=== PATIENT | female | born 1965 | race American Indian/Alaskan Native ===

== ENCOUNTER 2017-03-26 07:33 | Day surgery (SDC) | payer BC, MEDICARE ==
[2017-03-26] MEDS ORDERED: WATER FOR IRRIG STERILE IR ONE (07:46)
[2017-03-26] MEDS ORDERED: NACL 0.9% 1000 ML 1,000 ML IV SCH (08:00)
--- NOTE | 2017-03-26 08:38 | Anesthesia Consultation ---
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 Patient reports ECHO and stress test 08/2013 "okay") - Central Nervous System Hx Psychiatric Problems: No - Endocrine Hx End Stage Renal Disease: Yes (dialyzed T,T,S through LUE fistula, last dialyzed yesterday) Hx Non-Insulin Dependent Diabetes: Yes - Hematic Hx Anemia: Yes - Other Systems Hx Cancer: No Hx Obesity: Yes - Additional Comments Anesthesia Medical History Comments: NAC
--- NOTE | 2017-03-26 08:38 | Anesthesia Day of Surgery ---
Anesthesia Day of Surgery - Day of Surgery Patient Examined: Yes Patient H&P Reviewed: Yes Patient is NPO: Yes Beta Blockers: No (last night)
[2017-03-26] MEDS ORDERED: DIPRIVAN 10 MG/ML IV ONE (09:07)
--- NOTE | 2017-03-26 09:16 | Short Stay Summary ---
Short Stay Documentation Date of service: 03/26/17 Narrative H&P: 52 year old presents for EGD to evaluate epigastric abdominal pain, postprandial fullness, nausea, vomiting. - History Principal diagnosis: epigastric abdominal pain, postprandial fullness, nausea, vomiting H&P: obtained from office - Allergies and Medications Current Medications: Allergies ketorolac [From Toradol] Allergy (Verified 03/26/17 08:33) Vomiting influenza virus vaccine, specific [influenza virus vacc,specific] Adverse Reaction (Verified 06/08/14 15:52) Swelling IV CONTRAST Allergy (Uncoded 03/26/17 07:35) Swelling EGGS Adverse Reaction (Uncoded 04/21/13 12:53) Unknown Home Medications Medication Instructions Recorded Confirmed Last Taken Type Furosemide [Lasix] 80 mg PO DAILY 04/16/13 03/26/17 03/25/17 History Metoprolol [Lopressor TAB] 25 mg PO DAILY 04/16/13 03/26/17 03/25/17 History Cinacalcet HCl [Sensipar] 60 mg PO DAILY 03/26/17 03/26/17 03/25/17 History Dialyvite 800 Plus D Wafer 800 mg PO DAILY 03/26/17 03/26/17 03/25/17 History Glimepiride 2 mg PO DAILY 03/26/17 03/26/17 03/25/17 History Losartan 25 mg PO DAILY 03/26/17 03/26/17 03/25/17 History Promethazine 12.5 mg PO DAILY 03/26/17 03/26/17 03/25/17 History Vitamin D (Nf) 50,000 mg PO DAILY 03/26/17 03/26/17 03/25/17 History Active Medications Sodium Chloride (Nacl 0.9% 1000 Ml) 1,000 mls @ 50 mls/hr IV DIRECT HOWARD Last Admin: 03/26/17 08:33 Dose: 50 mls/hr - Hospital course Hospital course: Uneventful EGD. - Disposition Condition at discharge: Good Disposition: [id number] TO HOME OR SELFCARE - Discharge Diagnoses (1) Erosive gastritis Status: Acute (2) Gastric nodule Status: Acute (3) Hiatal hernia Status: Acute (4) Lower esophageal ring (Schatzki) Status: Acute (5) Nausea & vomiting Status: Acute (6) Epigastric abdominal pain Status: Acute (7) Postprandial abdominal bloating Status: Acute Short Stay Discharge Plan Activity: other (no driving today) Diet: other (resume usual diet) Additional Instructions: Continue current meds. Patient to call for biopsy results. Follow up with: PAT FIGUEROA JR, MD [Primary Care Provider] - 7 Days
--- NOTE | 2017-03-26 09:45 | Operative Report ---
Operative Report Operative Report: Date of procedure: 03/26/2017 Preprocedure diagnosis: Epigastric abdominal pain, postprandial fullness, nausea and vomiting Post procedure diagnosis: Erosive antral gastritis, gastric fundic nodule, hiatal hernia, nonobstructing Schatzki ring with mild inflammatory change Procedure name(s): Esophagogastroduodenoscopy and biopsy Surgeon: Colin Damian MD Anesthesia: Monitored anesthesia care EBL: Less than 1-2 mL Procedure: The indications, techniques, potential complications and alternatives , had been discussed in full detail prior to the date of the exam, and once again on the day of the exam. Questions were encouraged and answered, and consent was thereby obtained. The patient was placed in the left lateral decubitus position, and was medicated by anesthesia services. See the anesthesia records for details. The tip of a [employer] video panendoscope was passed without difficulty through the pharynx and into the esophagus. The esophagus appeared normal throughout its entire length, however a nonobstructing Schatzki ring was noted at the esophagogastric junction. There was minor inflammatory change. See photograph. A 1-2 cm hiatal hernia was then traversed as the endoscope was advanced into the stomach. Air was insufflated, the stomach distended well, the pylorus was patent and there was no retained gastric content. There was thickening of an antral fold and marketed thickening of a prepyloric fold, both with erosive changes but no marina ulceration. See photographs. Minor erythema was noted in the duodenal bulb. The post bulbar duodenum was unremarkable to below the level of the ampulla. Retroflexion in the stomach disclosed no pathology involving the lesser curvature. A 2-3 mm inflammatory appearing nodule was noted in the fundus, and the hiatal hernia was noted from retroflexed positioning as well. Biopsies were obtained from the thickened prepyloric fold for histology (container #1), from the mid antral thickened fold for histology (container #2), from the gastric fundic nodule for histology (container #3), and antral biopsies were obtained for rapid Helicobacter pylori testing. There was no significant bleeding from any biopsy site. The endoscope was then straightened and withdrawn, with repeat examination of the stomach, esophagogastric junction and esophagus. There were no additional findings. The procedure was very well tolerated. Post procedure she was monitored in the recovery area of the GI lab to ensure stability prior to her release. See the outpatient record for details regarding instructions to patient, medications and plans for follow-up. Final diagnosis: 1. Erosive antral gastritis with thickened folds 2. Minimal bulbar duodenitis 3. Gastric fundic nodule 4. Hiatal hernia 5. Nonobstructing Schatzki ring with mild inflammatory change Colin Damian M.D. Dictated 04/03/2017 at 9:42 AM
[2017-03-26 09:49] VITALS: BP 160/84
--- NOTE | 2017-03-26 14:58 | Post Anesthesia Evaluation ---
- Post Anesthesia Evaluation Patient Participated: Yes Airway Patent: Yes Stable Respiratory Function: Yes Nausea/Vomiting: No Temp > 96.8F: Yes Pain Manageable: Yes Adequeate Hydration: Yes Anesthesia Complications: No Block Receding Appropriately: Not Applicable Patient on Ventilator: No
== END 2017-03-26 10:46 | disposition home or self-care (01) ==
LOC: GIO 07:33
PROVIDERS: ATTEND Internal Medicine Gastroenterology
DX: K29.70 Gastritis, unspecified, without bleeding (principal); K29.80 Duodenitis without bleeding; K22.2 Esophageal obstruction; K44.9 Diaphragmatic hernia without obstruction or gangrene; K31.89 Other diseases of stomach and duodenum; I13.2 Hypertensive heart and chronic kidney disease with heart failure and with stage 5 chronic kidney disease, or end stage renal disease; E11.22 Type 2 diabetes mellitus with diabetic chronic kidney disease; N18.6 End stage renal disease; I50.9 Heart failure, unspecified; J45.909 Unspecified asthma, uncomplicated; E66.9 Obesity, unspecified; Z68.33 Body mass index [BMI] 33.0-33.9, adult; Z79.899 Other long term (current) drug therapy; Z79.84 Long term (current) use of oral hypoglycemic drugs; Z98.51 Tubal ligation status; Z90.710 Acquired absence of both cervix and uterus; Z98.890 Other specified postprocedural states; Z99.2 Dependence on renal dialysis; Z88.7 Allergy status to serum and vaccine; Z88.6 Allergy status to analgesic agent; Z91.041 Radiographic dye allergy status; Z91.012 Allergy to eggs
CPT/HCPCS: 43239; 82962; 86677; 88305; 88342; J2704; J7030